=== PATIENT | male | born 1995 | race Caucasian/White ===

== ENCOUNTER 2017-10-31 01:51 | Emergency (ER) | payer SELFPAY ==
[~2017-10-31] VITALS: Ht 175.3 cm; Wt 72.0 kg
[2017-10-31 01:58] VITALS: BP 124/63; PULSE 76; RESP 16; TEMP 97.6; O2SAT 98
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
== END 2017-10-31 03:53 | disposition home or self-care (01) ==
LOC: NEPD 01:51
DX: S01.412A Laceration without foreign body of left cheek and temporomandibular area, initial encounter (principal); W01.198A Fall on same level from slipping, tripping and stumbling with subsequent striking against other object, initial encounter
CPT/HCPCS: 12014